=== PATIENT | female | born 1980 | race Caucasian/White ===

== ENCOUNTER 2018-08-09 01:56 | Emergency (ER) | payer MEDICAID, OTHER ==
[~2018-08-09] VITALS: Ht 160 cm; Wt 59.0 kg
[~2018-08-09 01:56] MED LIST: ASPI-605 PO; CHOL400C8 PO; ISOS30TA6 PO; LACT1TAB12 PO; LOSA50TA39 PO; METO-295 PO; METO50TA16 PO
[2018-08-09] MEDS ORDERED: ONDANSETRON 4 MG/2 ML VIAL IV ONE (02:30)
[2018-08-09] MEDS ORDERED: MORPHINE SULFATE 2 MG/1 ML DISP.SYRIN IV ONE (02:30)
[2018-08-09] MEDS ORDERED: IV NORMAL SALINE 1000 ML BAG IV ONE (02:30)
[2018-08-09] MEDS ORDERED: ONDANSETRON 4 MG/2 ML VIAL ONE (02:52)
[2018-08-09] MEDS ORDERED: MORPHINE SULFATE 4 MG/1 ML DISP.SYRIN ONE (02:52)
[2018-08-09 02:53] LABS: BASOPHILS % (AUTO) 0.5 % (0.0-2.0); EOSINOPHILS # (AUTO) 0.1 K/uL (0.0-0.7); EOSINOPHILS % (AUTO) 1.5 % (0.0-7.0); HEMATOCRIT 33.4 % (31.2-41.9); HEMOGLOBIN 11.1 g/dL (10.9-14.3); LYMPHOCYTES # (AUTO) 4.1 K/uL (20.0-40.0); LYMPHOCYTES % (AUTO) 45.7 % (20.5-51.5); MEAN CORPUSCULAR HEMOGLOBIN 25.4 uug (24.7-32.8); MEAN CORPUSCULAR HGB CONC 33 g/dL (32.3-35.6); MEAN CORPUSCULAR VOLUME 76.2 fL (75.5-95.3); MONOCYTES # (AUTO) 0.7 K/uL (2.0-10.0); MONOCYTES % (AUTO) 7.8 % (0.0-11.0); NEUTROPHILS % (AUTO) 44.5 % (38.5-71.5); PLATELET COUNT (AUTO) 235 K/uL (179-408); RED BLOOD CELL COUNT(AUTO) 4.39 MIL/uL (3.63-4.92); WHITE BLOOD COUNT (AUTO) 8.9 K/uL (3.8-11.8)
[2018-08-09 02:58] LABS: CARBON DIOXIDE 24 mmol/L (21-32); CHLORIDE 104 mmol/L (98-107); CREATININE 0.7 mg/dL (0.6-1.3); GLUCOSE 97 mg/dL (74-106); POTASSIUM 3.9 mmol/L (3.5-5.1); UREA NITROGEN, BLOOD 11 mg/dL (7-18)
[2018-08-09 03:04] LABS: ALANINE AMINOTRANSFERASE 20 U/L (14-59); ALKALINE PHOSPHATASE 49 U/L (50-136); ASPARTATE AMINOTRANSFERASE 8 U/L (15-37); BILIRUBIN,DIRECT 0.1 mg/dL (0.0-0.2); BILIRUBIN,TOTAL 0.2 mg/dL (0.2-1.0); LIPASE 299 U/L (73-393); TOTAL PROTEIN, SERUM 6.7 g/dL (6.4-8.2)
[2018-08-09 03:13] LABS: *BILIRUBIN,URIN NEGATIVE (NEGATIVE); *BLOOD, URINE NEGATIVE (NEGATIVE); *COLOR,URINE YELLOW (YELLOW); *KETONES,URINE NEGATIVE (NEGATIVE); LEUKOCYTE ESTERASE ,URINE NEGATIVE (NEGATIVE); NITRITE, URINE NEGATIVE (NEGATIVE); UGLUCOSE NEGATIVE (NEGATIVE)
[2018-08-09 03:16] LABS: *CLARITY,URINE HAZY (CLEAR)
[2018-08-09 03:22] LABS: BACTERIA,URINE FEW /HPF (NONE SEEN); RBC,URINE 0-3 /HPF (0-3); SQUAMOUS EPITHELIAL CELL,UR MANY /HPF (NONE SEEN); WBC,URINE 0-3 /HPF (0-3)
[2018-08-09] MEDS ORDERED: KETOROLAC TROMETHAMINE 30 MG INJ ONE (03:44)
[2018-08-09] MEDS ORDERED: LIDOCAINE VISCUS 2% 15 ML UDC ONE ×3 (03:44→03:46)
[2018-08-09] MEDS ORDERED: MAG HYDROX/AL HYDROX/SIMETH 30 ML LIQUID UDC ONE (03:44)
[2018-08-09] MEDS ORDERED: LIDOCAINE VISCUS 2% 15 ML UDC MM ONE (03:45)
[2018-08-09] MEDS ORDERED: KETOROLAC TROMETHAMINE 30 MG INJ IVP ONE (03:45)
[2018-08-09] MEDS ORDERED: MAG HYDROX/AL HYDROX/SIMETH 30 ML LIQUID UDC PO ONE (03:45)
--- NOTE | 2018-08-09 05:01 | NUR ---
Patient discharged to home in stable conditon. Written and verbal after care instructions given. Patient verbalizes understanding of instructions.
== END 2018-08-09 05:02 | disposition home or self-care (01) ==
LOC: ER 01:58
DX: K80.20 Calculus of gallbladder without cholecystitis without obstruction (principal); Z79.82 Long term (current) use of aspirin; Z79.899 Other long term (current) drug therapy
CPT/HCPCS: 36415; 76705; 80048; 80076; 81001; 83690; 84702; 85025; 93005; 96361; 96374; 96375; 99284; J1885; J2270; J2405; A4663; J7030